=== PATIENT | male | born 1980 | race American Indian/Alaskan Native ===

== ENCOUNTER 2021-06-16 08:27 | Emergency (ER) | payer SELFPAY ==
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
[2021-06-16 09:13] VITALS: BP 135/81
== END 2021-06-16 09:06 | disposition home or self-care (01) ==
LOC: ED 08:27
DX: S80.02XA Contusion of left knee, initial encounter (principal); M54.5 Low back pain; M25.532 Pain in left wrist; V87.7XXA Person injured in collision between other specified motor vehicles (traffic), initial encounter; Y93.89 Activity, other specified; Y92.488 Other paved roadways as the place of occurrence of the external cause; Y99.8 Other external cause status
CPT/HCPCS: 99282